=== PATIENT | female | born 1995 | race Caucasian/White ===

== ENCOUNTER 2017-07-10 18:51 | Emergency (ER) | payer OTHER ==
[2017-07-10] MEDS ORDERED: SILVER NITRATE 1 APPL TOP ONE (19:57)
--- NOTE | 2017-07-10 20:12 | EDPHYS ---
Physician Documentation [facility] Name: Dipika Bond Age: 21 yrs Sex: Female : 1995 Arrival Date: 07/10/2017 Time: 18:55 Bed 9 Private MD: ED Physician Jovanna Card HPI: 07/10 19:39 This 21 yrs old Female presents to ER via Ambulatory with complaints of rh1 Finger Injury. 19:39 The patient or guardian reports an abrasion. The complaints affect the palmar aspect of rh1 distal phalanx of left ring finger. Context: The problem was sustained at home, resulted from cut with knife. Onset: The symptoms/episode began/occurred today, at 16:00. Modifying factors: The symptoms are alleviated by nothing, the symptoms are aggravated by nothing. Associated signs and symptoms: Pertinent negatives: cyanosis distally, decreased sensation distally, numbness distally, tingling distally. Severity of symptoms: At their worst the symptoms were moderate, in the emergency department the symptoms are unchanged. The patient has not experienced similar symptoms in the past. The patient has not recently seen a physician. Pt reports she was cutting onions and cut left 4th finger, with continued bleeding.. 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 - Social history:: Smoking status: Patient/guardian denies using tobacco. ROS: 19:39 Constitutional: Negative for fever rh1 19:39 MS/extremity: Positive for tenderness, Negative for decreased range of motion, swelling. 19:39 Skin: Positive for abrasion(s). 19:39 Neuro: Negative for numbness, tingling, weakness. 19:39 All other systems are negative. Exam: 19:39 Constitutional: This is a well developed, well nourished patient who is awake, alert, rh1 and in no acute distress. Head/Face: Normocephalic, atraumatic. Cardiovascular: Regular rate and rhythm with a normal S1 and S2. No gallops, murmurs, or rubs. No JVD. No pulse deficits. Respiratory: Lungs have equal breath sounds bilaterally, clear to auscultation. No rales, rhonchi or wheezes noted. No increased work of breathing. Abdomen/GI: Soft, non-tender, with normal bowel sounds. No distension. No guarding or rebound. No evidence of tenderness throughout. Back: No spinal tenderness. No costovertebral tenderness. Full range of motion. MS/ Extremity: Pulses equal, no cyanosis. Neurovascular intact. Full, normal range of motion. 19:39 Skin: injury, avulsion(s), a very small .5 cm(s), of the palmar aspect of distal phalanx of left ring finger. 19:39 Neuro: Orientation: is normal, to person, place \T\ time. Mentation: is normal, lucid, able to follow commands, Motor: is normal, moves all fours, Gait: is steady, at a normal pace, without difficulty. Vital Signs: 19:03 BP 154 / 94; Pulse 91; Resp 16; Temp 98.3; Pulse Ox 100% on R/A; Weight 108.86 kg; la1 Height 5 ft. 6 in. (167.64 cm); 19:03 Body Mass Index 38.74 (108.86 kg, 167.64 cm) la1 Procedures: 20:10 Performed silver nitrate to wound 4th finger wound, with bleeding controlled. rh1 MDM: 19:39 Patient medically screened. rh1 20:10 Data reviewed: vital signs, nurses notes, and as a result, I will discharge patient. rh1 Data interpreted: Pulse oximetry: on room air is 100 %. Interpretation: normal. Counseling: I had a detailed discussion with the patient and/or guardian regarding: the historical points, exam findings, and any diagnostic results supporting the discharge/admit diagnosis, the need for outpatient follow up, a family practitioner, to return to the emergency department if symptoms worsen or persist or if there are any questions or concerns that arise at home. 07/10 20:00 Order name: Wound Care: non - stick and gauze; Complete Time: 20:24 rh1 Administered Medications: 20:05 Drug: Silver Nitrate Applicators 1 application {Note: by Cheyanne Webb NP.} Route: rk2 Topical; Site: affected area; Disposition: 07/11 05:44 Co-signature as Attending Physician, Jovanna Card MD. ma2 Disposition: 07/10/17 20:11 Discharged to Home. Impression: Abrasion of left ring finger. - Condition is Stable. - Discharge Instructions: Wound Care, [id number]. - Medication Reconciliation Form, Thank You Letter, Antibiotic Education, Prescription Opioid Use form. - Family Work Release (07/10/17 21:09). rh1 - Follow up: Private Physician; When: 1 - 2 days; Reason: Recheck today's complaints, Continuance of care, Re-evaluation by your physician. Follow up: Emergency Department; When: As needed; Reason: Fever > 102 F, If symptoms return, Trouble breathing, Worsening of condition. - Problem is new. - Symptoms have improved. Signatures: Carmelita Manzanares RN RN bb Gab Dent RN RN la1 Cheyanne Webb NP GEOLOGIST rh1 Jovanna Card MD MD ma2 Luz Hernandez RN RN rk2
--- NOTE | 2017-07-10 20:12 | ER ---
Nurse's Notes [facility] Name: Dipika Bond Age: 21 yrs Sex: Female : 1995 Arrival Date: 07/10/2017 Time: 18:55 Bed 9 Private MD: Diagnosis: Abrasion of left ring finger Presentation: 07/10 19:02 Presenting complaint: Patient states: I cut the very tip of my left ring finger off la1 with my knife while cutting onions, Bleeding controlled. Transition of care: patient was not received from another setting of care. Onset of symptoms was July 10, 2017. Care prior to arrival: None. 19:02 Method Of Arrival: Ambulatory la1 19:02 Acuity: SULEIMAN 4 la1 Triage Assessment: 20:25 Injury Description: Amputation. 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 - Social history:: Smoking status: Patient/guardian denies using tobacco. Screenin:18 Abuse screen: Denies threats or abuse. Nutritional screening: No deficits noted. la1 Tuberculosis screening: No symptoms or risk factors identified. Fall Risk None identified. Assessment: 19:18 General: Appears in no apparent distress. Behavior is calm, cooperative. Pain: la1 Complains of pain in palmar aspect of distal phalanx of left ring finger. Neuro: Level of Consciousness is awake, alert, obeys commands. Cardiovascular: Capillary refill < 3 seconds Patient's skin is warm and dry. Respiratory: Airway is patent Respiratory effort is even, unlabored. GI: No signs and/or symptoms were reported involving the gastrointestinal system. : No signs and/or symptoms were reported regarding the genitourinary system. Musculoskeletal: Circulation, motion, and sensation intact. Vital Signs: 19:03 BP 154 / 94; Pulse 91; Resp 16; Temp 98.3; Pulse Ox 100% on R/A; Weight 108.86 kg; la1 Height 5 ft. 6 in. (167.64 cm); 19:03 Body Mass Index 38.74 (108.86 kg, 167.64 cm) la1 ED Course: 18:55 Patient arrived in ED. mr 19:02 Triage completed. la1 19:03 Arm band placed on left wrist. la1 19:12 Cheyanne Webb NP is PHCP. rh1 19:12 Jovanna Card MD is Attending Physician. rh1 19:18 Carmelita Manzanares, RN is Primary Nurse. bb 19:18 Call light in reach. la1 20:25 No provider procedures requiring assistance completed. Patient did not have IV access bb during this emergency room visit. Administered Medications: 20:05 Drug: Silver Nitrate Applicators 1 application {Note: by Cheyanne Webb FISCAL OFFICER.} Route: rk2 Topical; Site: affected area; Outcome: 20:11 Discharge ordered by . [facility] 20:25 Discharged to home ambulatory, with family. bb 20:25 Condition: stable 20:25 Discharge instructions given to patient, Instructed on discharge instructions, follow up and referral plans. wound care, Demonstrated understanding of instructions, follow-up care, wound care. 20:26 Patient left the ED. bb Signatures: Betzaida Crowell Carmelita Manzanares, RN RN bb Gab Dent RN RN [facility] Cheyanne Webb NP FISCAL OFFICER [facility] Luz Hernandez RN RN rk2
== END 2017-07-10 20:26 | disposition home or self-care (01) ==
LOC: ER 18:51
DX: S60.415A Abrasion of left ring finger, initial encounter (principal); W26.0XXA Contact with knife, initial encounter; Y93.G3 Activity, cooking and baking; Y92.000 Kitchen of unspecified non-institutional (private) residence as the place of occurrence of the external cause; Z88.0 Allergy status to penicillin; Z88.1 Allergy status to other antibiotic agents
CPT/HCPCS: 99283